=== PATIENT | female | born 1985 | race Caucasian/White ===

== ENCOUNTER 2020-11-25 13:19 | Emergency (ER) | payer MEDICAID ==
[~2020-11-25] VITALS: Ht 162.6 cm; Wt 72.0 kg
[~2020-11-25 13:19] MED LIST: AMOX500T2 PO; HYDR1TAB PO; NO HOME MEDS; ONDA4TAB12 PO; PENI500T2 PO
[2020-11-25 13:21] VITALS: BP 113/84
== END 2020-11-25 15:04 | disposition left against medical advice (07) ==
LOC: ER 13:20
DX: M79.605 Pain in left leg (principal); Z53.21 Procedure and treatment not carried out due to patient leaving prior to being seen by health care provider

== ENCOUNTER 2020-12-07 11:11 | Emergency (ER) | payer MEDICAID ==
[~2020-12-07] VITALS: Ht 162.6 cm; Wt 77.3 kg
[2020-12-07 11:57] VITALS: BP 130/90
== END 2020-12-07 14:54 | disposition left against medical advice (07) ==
LOC: ER 11:12
DX: R21 Rash and other nonspecific skin eruption (principal); Z53.21 Procedure and treatment not carried out due to patient leaving prior to being seen by health care provider

== ENCOUNTER 2021-03-23 12:49 | Emergency (ER) | payer MEDICAID ==
[~2021-03-23] VITALS: Ht 162.6 cm; Wt 77.0 kg
[2021-03-23 12:56] VITALS: BP 122/82
[2021-03-23] MEDS ORDERED: DOXYCYCLINE 100MG CAPSULE PO STA (13:20)
[2021-03-23 15:07] LABS: URINE HCG NEGATIVE (NEG)
== END 2021-03-23 15:15 | disposition left against medical advice (07) ==
LOC: ER 12:50
DX: S70.261A Insect bite (nonvenomous), right hip, initial encounter (principal); W57.XXXA Bitten or stung by nonvenomous insect and other nonvenomous arthropods, initial encounter; Y93.89 Activity, other specified; Y92.89 Other specified places as the place of occurrence of the external cause; Y99.8 Other external cause status
CPT/HCPCS: 81025; 99283; 99284